=== PATIENT | female | born 2000 | race Caucasian/White ===

== ENCOUNTER 2023-08-27 06:18 | Inpatient (IN) ==
[2023-08-27] MEDS ORDERED: PITOCIN IVP ONE (06:28)
[2023-08-27] MEDS ORDERED: REGLAN INJ 10 MG VIAL IVP PRN (06:28)
[2023-08-27] MEDS ORDERED: STADOL INJ IVP PRN (06:28)
[2023-08-27] MEDS ORDERED: NUBAIN INJ 20 MG AMP IVP PRN (06:28)
[2023-08-27 07:05] LABS: BASOPHILS # (AUTO) 0.1 X10^3/uL (0.0-0.1); BASOPHILS % (AUTO) 0.5 % (0.2-1.0); EOSINOPHILS % (AUTO) 0.4 % (0.9-2.9); HEMATOCRIT 29.9 % (36.0-47.0); HEMOGLOBIN 9.9 g/dL (12.0-16.0); LYMPHOCYTES # (AUTO) 2.6 X10^3/uL (1.3-2.9); LYMPHOCYTES % (AUTO) 23.6 % (21.0-51.0); MEAN CORPUSCULAR HGB CONC 33.1 g/dL (33.0-35.0); MEAN CORPUSCULAR VOLUME 84.6 fL (80.0-100.0); MEAN PLATELET VOLUME 8.8 fL (7.4-11.0); MONOCYTES # (AUTO) 0.6 x10^3/uL (0.3-0.8); MONOCYTES % (AUTO) 5.6 % (0.0-13.0); NEUTROPHILS # (AUTO) 7.7 x10^3/uL (2.2-4.8); NEUTROPHILS % (AUTO) 69.9 % (42.0-75.0); PLATELET COUNT 237 X10^3/uL (150.0-450.0); RED BLOOD COUNT 3.54 X10^6/uL (3.5-5.4); RED CELL DISTRIBUTION WIDTH 13.7 % (11.6-16.5)
--- NOTE | 2023-08-27 07:07 | DR.OB ---
OB QUICK NOTE Assessment/Plan (1) Active labor at term: Assessment/Plan: L&D 08/27/23 at 7:00am S-No complaint. O-Afebrile,VSS [id number] with good LTV, +accel, no decel. CTX=mild uterine irritability CVX=3cm/50%/-1/VTX AROM with clear fluid. IUPC and FSE placed. A-IUP at 39 0/7 weeks for induction P-Begin pitocin induction Anticipate
[2023-08-27 07:14] LABS: BLOOD UREA NITROGEN 7 mg/dL (7-18); CALCIUM 8.3 mg/dL (8.5-10.1); CARBON DIOXIDE 25.7 mmol/L (21-32); CHLORIDE 103 mmol/L (98-107); CREATININE 0.64 mg/dL (0.55-1.02); GLUCOSE 86 mg/dL (65-99); POTASSIUM 3.4 mmol/L (3.5-5.1); SODIUM 137 mmol/L (136-145); eGFR NON BLACK RACES > 60 (>60)
[2023-08-27] MEDS: OXYTOCIN 20 UNIT/1,000 ML-NS 20 UNIT/1,000 ML PLAST..BAG IV PRN (07:15)
[2023-08-27 07:20] LABS: BILIRUBIN,URINE NEGATIVE (NEGATIVE); BLOOD/HEMOGLOBIN,URINE NEGATIVE (NEGATIVE); GLUCOSE, URINE NEGATIVE (NEGATIVE); KETONES,URINE NEGATIVE (NEGATIVE); LEUKOCYTE ESTERASE ,URINE 2+ (NEGATIVE); NITRITES,URINE NEGATIVE (NEGATIVE); PROTEIN,URINE NEGATIVE (NEGATIVE); UROBILINOGEN,URINE NORMAL (NORMAL)
[2023-08-27 07:27] LABS: APPEARANCE,URINE HAZY (CLEAR); COLOR,URINE PALE YELLOW (YELLOW); RBC,URINE NONE SEEN /HPF (0-3)
[2023-08-27 07:28] LABS: BACTERIA,URINE TRACE /HPF (NEGATIVE); SQUAMOUS EPITHELIAL CELL,UR MANY /HPF (NEGATIVE)
[2023-08-27] MEDS: PEPCID TAB 40 MG ONE (08:00)
[2023-08-27] MEDS: D5 1/2 NS 1,000 ML 1,000 ML IV SCH (08:06)
[2023-08-27] MEDS: D5 1/2 NS 1,000 ML 1,000 ML IV ONE (08:06)
[2023-08-27] MEDS ORDERED: NUBAIN INJ 200 MG VIAL MULTIDOSE ONE (08:43)
[2023-08-27] MEDS: NUBAIN INJ 200 MG VIAL MULTIDOSE IVP PRN (08:47)
[2023-08-27] MEDS ORDERED: ZOFRAN INJ 4 MG VIAL ONE (09:13)
[2023-08-27] MEDS: LR 1,000 ML IV 1,000 ML IV ONE (09:20)
[2023-08-27] MEDS: ZOFRAN INJ 4 MG VIAL IVP PRN (09:23)
[2023-08-27] MEDS: FENTANYL VIAL INJ 100 mcg ONE (11:00)
[2023-08-27] MEDS: NAROPIN EPIDURAL 0.2% 100 ML ONE (11:00)
--- NOTE | 2023-08-27 12:05 | DR.OB ---
OB QUICK NOTE Assessment/Plan (1) Active labor at term: Assessment/Plan: L&D 08/27/23 at 12:03pm Pitocin=18mu/min. S-No complaint. s/p epidural. O-Afebrile,VSS FRO=650 with good LTV, +accel, no decel. CTX=q 1 1/2 to 2 min., about 45-65mmHg CVX=5-6cm/80%/0 A-IUP at 39 0/7 weeks for induction P-Continue pitocin induction Anticipate
[2023-08-27] MEDS: PITOCIN ONE (13:41)
--- NOTE | 2023-08-27 13:49 | DR.OB ---
OB QUICK NOTE Assessment/Plan (1) Active labor at term: Assessment/Plan: Delivery Note [employer] 08/27/23 at 1:38pm Patient complete and pushing. Head delivered over intact perineum. No nuchal cord. Nose and mouth bulb suctioned. Body delivered over intact perineum. Cord clamped x 2 and cut. handed to attendant. Cord sent for gases. Placent delivered spontaneously / intact / 3 vessel cord. No CVX / vaginal / perineal tears. Viable female infant delivered by , VTX/OA, wt=7'8" and 8/9, stable to NBN. Mother stable to RR. BTS=101wk.
[2023-08-27] MEDS ORDERED: MOTRIN TAB 800 MG PO PRN (14:08)
[2023-08-27] MEDS ORDERED: DERMOPLAST PAIN RELIEF SPRAY TOP PRN (14:08)
[2023-08-27] MEDS ORDERED: ADACEL or BOOSTRIX TDaP VACCINE IM ONE (14:08)
[2023-08-27] MEDS ORDERED: MILK OF MAGNESIA PO PRN (14:08)
[2023-08-27] MEDS ORDERED: AMBIEN PO PRN (14:08)
[2023-08-27] MEDS: BETADINE SOLN ONE (14:30)
[2023-08-27] MEDS: OXYTOCIN 20 UNIT/1,000 ML-NS 20 UNIT/1,000 ML PLAST..BAG IV SCH (15:37)
[2023-08-27] MEDS: MOTRIN TAB 800 MG PO PRN (17:03)
[2023-08-28 05:06] LABS: HEMATOCRIT 26.1 % (36.0-47.0); HEMOGLOBIN 8.7 g/dL (12.0-16.0)
[2023-08-28] MEDS: PRENATAL PLUS PO SCH (08:46)
[2023-08-28] MEDS: PEPCID TAB 20 MG PO SCH (08:47)
[2023-08-28 12:42] VITALS: BP 114/63; PULSE 77; RESP 16; TEMP 97.9; O2SAT 99
== END 2023-08-28 15:20 | disposition home or self-care (01) | DRG 807 ==
LOC: LD 06:18 → MED/SURG 14:44
PROVIDERS: ADMIT Specialist; ATTEND Specialist
DX: Z3A.39 39 weeks gestation of pregnancy; Z37.0 Single live birth; O99.613 Diseases of the digestive system complicating pregnancy, third trimester; F41.8 Other specified anxiety disorders; K21.9 Gastro-esophageal reflux disease without esophagitis; O99.343 Other mental disorders complicating pregnancy, third trimester